=== PATIENT | male | born 1980 | race Caucasian/White ===

== ENCOUNTER 2025-01-01 16:22 | Emergency (ER) | payer OTHER, SELFPAY ==
[2025-01-01 16:23] VITALS: BP 123/87; PULSE 67; RESP 22; TEMP 36.4; O2SAT 91; BMI 28.2
--- NOTE | 2025-01-01 16:25 | RAD_ITS ---
PROCEDURE: RAD/Hand Min 3 Views
[2025-01-01] MEDS: Cefazolin 2 GM in 0.9% Normal Saline (100mL Bag) 100 ML IV (16:36)
--- NOTE | 2025-01-01 16:44 | EX.ED.GENINJ ---
HPI History of Present Illness Chief Complaint: Trauma Informant: patient, family and EMS Narrative Narrative: 44-year-old [employer] male at his hand crushed in a bead picker. He was able to get the hand out. EMS was called and they administered 150 mcg of fentanyl. He has had prior tetanus immunization and does not recall the last update. Denies any allergies. No prior surgeries. Currently takes no medications. He states that the right thumb he can move and feel normally. The other 4 fingers he cannot feel or move. He denies any other injuries. Tetanus Immunization: >10 years PFSH PFS Medical History no medical history no medical history Home Medications ?Medication ?Instructions ?Recorded ?Last Taken ?Type NK 01/01/25 Unknown History Allergy/AdvReac Type Severity Reaction Status Date / Time No Known Allergies Allergy Verified 01/01/25 16:23 Surgical History no surgical history no surgical history Social History Smoking Status: Never smoker ROS ROS ED Constitutional Constitutional ED: Denies chills, fever(s) or weight loss Eyes Eyes: Denies change in vision or diplopia ENT ENT ED: Denies ear pain, rhinorrhea or sore throat Cardiovascular Cardiovascular: Denies chest pain, orthopnea, palpitations or racing heartbeat Respiratory/Chest Respiratory/Chest: Denies cough, dyspnea or orthopnea Gastrointestinal Gastrointestinal: Denies abdominal pain, diarrhea, nausea or vomiting Genitourinary Genitourinary ED: Denies dysuria, hematuria or urinary frequency Musculoskeletal Musculoskeletal: Reports other Details: Crush injury right hand ; Denies arthralgias or myalgias Integumentary Reports other Details: Degloving injury right hand ; Denies abscess or rash Neurologic Neurologic: Denies headache(s) or weakness Psychiatric Psychiatric: Denies anxiety, depression, suicidal ideation or suicidal thoughts Endocrine Endocrinology: Denies polydipsia, polyphagia or polyuria Allergic/Immunologic Allergic/Immunologic ED: Denies mouth swelling, tongue swelling or urticaria EXAM Physical Exam Const Vital Signs: 01/01/25 16:23 01/01/25 17:02 Temperature 97.6 F L 97.9 F Temperature Source Temporal Pulse Rate 67 65 Respiratory Rate 22 H 20 H Blood Pressure 123/87 H 131/89 H Blood Pressure Mean 99 103 Pulse Ox 91 94 Oxygen Delivery Method Room Air Positive well nourished and well developed General Appearance ED: well developed and NAD HEENT Reports normocephalic, head/scalp atraumatic and moist mucous membranes Eyes PERRL and EOMs intact bilaterally Neck no lymphadenopathy, supple and no JVD Resp normal respiratory effort and clear to auscultation bilaterally Cardio regular rate, regular rhythm and no murmurs GI normal to inspection, nondistended, normoactive bowel sounds and non-tender Palpation: soft Back/Spine no CVA tenderness and normal ROM Extremity Extremity Narrative: Dorsum of right hand shows a large degloving injury down to the level of the tendons. I can visualize multiple fracture fragments near the MCP joints of the index long ring and little finger. The thumb appears uninjured with normal sensation and movement. The index ring long and little finger appear avascular and without sensation or movement. The wound is heavily contaminated. I do not see any injury at the forearm or elbow joints. General Extremety ED: Negative for edema General Extremity: Negative for edema Neuro oriented x3 and CN's II-XII intact bilaterally Sensorium / Orientation: alert Motor Exam: strength 5/5 throughout Psych mental status grossly normal Mood & Affect: Negative for depressed or tearful Skin no rashes or lesions noted and no wounds MDM MDM MDM Narrative Medical decision making narrative: Differential diagnosis includes crush injury open fracture neurovascular injury wound contamination tendon injury ligamentous injury My independent interpretation of the plain films is disarticulation and open fractures of the MCP joints of the index long ring and little finger. They are most likely associated fracture of the phalanx but due to positioning unable to fully visualize. Wet-to-dry dressing was placed he was placed in a Ortho-Glass volar splint. 2 g of Ancef was administered. Tetanus was updated with Adacel. I spoke locally with Dr. Wallace who recommends transfer to trauma center. I spoke with [facility] as the patient did not have a preference for trauma center. He has been accepted by Dr. James. History & Record Review Discussion w/independent historian: EMS personnel, Patient and Significant other Lab Data Attestation: I reviewed the patient's lab results. Labs: Laboratory Results - last 24 hr 01/01/25 16:39 WBC 8.7 RBC 4.91 Hgb 14.2 Hct 39.0 L MCV 79.4 L MCH 28.9 MCHC 36.4 H RDW Std Deviation 34.4 L RDW Coeff of Ravi 11.9 Plt Count 336 MPV 9.1 Immature Gran % (Auto) 0.300 Neut % (Auto) 61.1 Lymph % (Auto) 29.3 [place] % (Auto) 6.9 Eos % (Auto) 1.7 Baso % (Auto) 0.7 Absolute Neuts (auto) 5.3 Absolute Lymphs (auto) 2.56 Nucleated RBC % 0 Sodium 141 Potassium 3.7 Chloride 106 Carbon Dioxide 26.4 Anion Gap 9 BUN 14 Creatinine 0.99 Estim Creat Clear Calc 105.98 Est GFR (MDRD) Non-Af 96 BUN/Creatinine Ratio 14.3 Glucose 94 Calcium 8.8 Radiography Diagnostic Testing: Clinical Impression(s) from Imaging Studies Hand X-Ray 01/01/25 16:25 IMPRESSION: Limited exam due to nonstandard positioning and overlapping digits. Extensive probable crush injury/avulsive deformities of the 2nd-5th digits, including dislocation of the 2nd and 3rd MCP joints, displaced comminuted fractures of the 3rd-5th distal metacarpals, comminuted fracture of the 4th proximal phalanx base. Additional fractures may be present. Reading Location: [id number] Management Discussion w/another healthcare provider: [employer] (Dr. Lazaro, [facility] hand trauma Dr. James) Discharge Plan Triage Chief Complaint: Trauma ED Provider: Kishan Dimas Dx/Rx/DC Orders Clinical Impression: Open hand fracture, Crush injury of hand, Neurovascular injury Prescriptions: No Action NK Primary Care Provider: Ajit Martin Referrals: Ajit Martin DO [Primary Care Provider, Family Practice] Print Language: Austrian Disposition Disposition: Acute Care Hospital Discharge Location: [facility] Discharge Date/Time: 01/01/25 17:25
[2025-01-01 16:51] LABS: Hematocrit 39.0 % (40-54); Hemoglobin 14.2 g/dL (13.0-16.5); Immature Granulocytes Count 0.030 X10^3/uL (0.0-0.0); Mean Corp Hgb Conc 36.4 g/dL (32-36); Mean Corpuscular Volume 79.4 fL (80-94); Mean Platelet Vol. 9.1 fl (6.2-12.0); NRBC Flagged by Analyzer 0 % (0-5); Platelet Count 336 K/mm3 (150-450); RBC Distribution Width CV 11.9 % (11.6-14.6); RBC Distribution Width SD 34.4 fl (35.1-43.9); Red Blood Count 4.91 M/mm3 (4.6-6.2); White Blood Count 8.7 K/mm3 (4.4-11.0)
[2025-01-01 17:02] VITALS: BP 131/89; PULSE 65; RESP 20; TEMP 36.6; O2SAT 94
[2025-01-01 17:19] LABS: Anion Gap 9 (5-15); BUN 14 mg/dL (4-19); BUN/Creat Ratio 14.3 RATIO (10-20); Calcium,Total 8.8 mg/dL (7.6-11.0); Carbon Dioxide 26.4 mmol/L (21.0-32.0); Chloride 106 mmol/L (98-108); Estimated Creatinine Clearance 105.98 ml/min (50-250); Glucose 94 mg/dL (70-99); Potassium 3.7 mmol/L (3.3-5.1)
[2025-01-01 17:57] LABS: Prothrombin Time (Protime)PT. 13.5 SECONDS (11.7-14.9)
[2025-01-01 17:58] LABS: Partial Thromboplast Time 26.3 Seconds (24.1-36.2)
== END 2025-01-01 17:25 | disposition short-term general hospital (02) ==
PROVIDERS: Emergency Provider Emergency Medicine; PCP Family Medicine; Visit Provider Emergency Medicine
DX: S62.91XB Unspecified fracture of right hand, initial encounter for open fracture (principal); S64.91XA Injury of unspecified nerve at wrist and hand level of right arm, initial encounter; S67.21XA Crushing injury of right hand, initial encounter; W23.0XXA Caught, crushed, jammed, or pinched between moving objects, initial encounter; Z23 Encounter for immunization
CPT/HCPCS: 29125; 73130; 80048; 85025; 85610; 85730; 90715; 96365; 96372; 96375; 96376; 99285; A4216; J2405